=== PATIENT | female | born 1960 | race Caucasian/White ===

== ENCOUNTER 2017-06-06 22:51 | Emergency (ER) | payer MEDICARE, OTHER ==
[~2017-06-06] VITALS: Ht 157.5 cm; Wt 61.4 kg
[~2017-06-06 22:51] MED LIST: QUET400T PO
[2017-06-07 03:31] VITALS: BP 130/78
== END 2017-06-07 03:35 | disposition home or self-care (01) ==
LOC: EMS 22:53
DX: L03.031 Cellulitis of right toe (principal); K21.9 Gastro-esophageal reflux disease without esophagitis; I10 Essential (primary) hypertension
CPT/HCPCS: 99283

== ENCOUNTER 2018-07-31 05:50 | Emergency (ER) | payer OTHER ==
[~2018-07-31] VITALS: Ht 157.5 cm; Wt 59.1 kg
[2018-07-31 07:17] LABS: AMPHET/METH SCREEN,URINE POSITIVE (NEGATIVE); BARBITURATE SCREEN, URINE NEGATIVE (NEGATIVE); BENZODIAZEPINES SCREEN,URINE NEGATIVE (NEGATIVE); CANNABINOID SCREEN,URINE POSITIVE (NEGATIVE); COCAINE SCREEN,URINE NEGATIVE (NEGATIVE); METHADONE SCREEN, URINE NEGATIVE (NEGATIVE); OPIATE SCREEN,URINE NEGATIVE (NEGATIVE)
[2018-07-31 07:21] LABS: PHENCYCLIDINE SCREEN,URINE NEGATIVE (NEGATIVE)
[2018-07-31 07:46] LABS: BASOPHILS % (AUTO) 0.1 % (0.0-2.0); EOSINOPHILS % (AUTO) 0.4 % (1.0-6.0); HEMATOCRIT 42.1 % (36-46); HEMOGLOBIN 13.8 g/dL (12.0-16.0); LYMPHOCYTES # (AUTO) 0.8 K/uL (1.0-4.8); LYMPHOCYTES % (AUTO) 9.6 % (22.0-44.0); MEAN CORPUSCULAR HEMOGLOBIN 29.1 pg (26.0-34.0); MEAN CORPUSCULAR HGB CONC 32.8 G/dL (31.0-37.0); MEAN CORPUSCULAR VOLUME 89 fL (80-100); MONOCYTES # (AUTO) 0.2 K/uL (0.1-1.0); MONOCYTES % (AUTO) 2.7 % (2.0-9.0); NEUTROPHILS # (AUTO) 7.1 K/uL (1.8-7.7); PLATELET COUNT (AUTO) 246 K/uL (150-450); RED BLOOD CELL COUNT(AUTO) 4.75 MIL/uL (4.00-5.20); RED CELL DISTRIBUTION WIDTH 13.4 % (11.5-14.5)
[2018-07-31 07:48] LABS: NEUTROPHILS % (AUTO) 87.2 % (40.0-70.0)
[2018-07-31 07:53] LABS: GLUCOSE, URINE (UA) NEGATIVE (NEGATIVE); KETONES,URINE TRACE mg/dL (NEGATIVE); LEUKOCYTE ESTERASE ,URINE TRACE (NEGATIVE); NITRATE,URINE NEGATIVE (NEGATIVE); OCCULT BLOOD,URINE NEGATIVE (NEGATIVE); PROTEIN,URINE POS 1+ (NEGATIVE)
[2018-07-31 07:56] LABS: ANION GAP 11 mmol/L (8-16); CALCIUM, TOTAL 9.3 mg/dL (8.8-10.5); CARBON DIOXIDE 28 mmol/L (22-29); CHLORIDE 102 mmol/L (98-107); CREATININE 0.72 mg/dL (0.60-1.30); GLOMERULAR FILTR. RATE CALC > 60 mL/min (>60); GLUCOSE,RANDOM 137 mg/dL (70-110); POTASSIUM 3.8 mmol/L (3.5-5.1); SODIUM SERUM 141 mmol/L (136-145); UREA NITROGEN, BLOOD 33 mg/dL (7-18)
[2018-07-31 08:01] LABS: ALANINE AMINOTRANSFERASE 35 U/L (12-78); ALBUMIN 3.4 g/dL (3.4-5.0); ALKALINE PHOSPHATASE 97 U/L (46-116); ASPARTATE AMINOTRANSFERASE 37 U/L (15-37); BILIRUBIN,TOTAL 0.5 mg/dL (0.1-1.0); LIPASE 59 U/L (73-393); TOTAL PROTEIN, SERUM 7.5 g/dL (6.4-8.2)
[2018-07-31 08:03] LABS: APPEARANCE,URINE HAZY (CLEAR); BILIRUBIN,URINE PRELIM. POSITIVE (NEGATIVE)
[2018-07-31 08:13] LABS: BACTERIA,URINE Few /HPF (None Seen); CALCIUM OXALATE CRYSTALS,UR Few /LPF (None Seen); HYALINE CASTS, URINE 0-2 /LPF (None Seen); RBC,URINE 0-2 /HPF (0-2); SQUAMOUS EPITHELIAL CELL,UR Moderate /LPF (None Seen)
[2018-07-31] MEDS ORDERED: PB/HYOSCY/ATR/SCOP/LIDO/MAALOX 55 ML BOTTLE PO ONE (09:00)
[2018-07-31] MEDS ORDERED: ONDANSETRON HCL 4 MG/2 ML VIAL IM ONE (09:00)
[2018-07-31 09:30] VITALS: BP 134/73
== END 2018-07-31 09:30 | disposition home or self-care (01) ==
LOC: EMS 05:50
DX: R10.13 Epigastric pain (principal); R11.2 Nausea with vomiting, unspecified; R19.7 Diarrhea, unspecified; G47.00 Insomnia, unspecified; I10 Essential (primary) hypertension; K21.9 Gastro-esophageal reflux disease without esophagitis; F31.9 Bipolar disorder, unspecified; F15.10 Other stimulant abuse, uncomplicated; F12.10 Cannabis abuse, uncomplicated; F41.9 Anxiety disorder, unspecified; Z79.899 Other long term (current) drug therapy
CPT/HCPCS: 36415; 80053; 80307; 81001; 83690; 85025; 96372; 99283; J2405

== ENCOUNTER 2018-10-19 18:08 | Emergency (ER) | payer OTHER ==
[~2018-10-19] VITALS: Ht 157.5 cm; Wt 63.6 kg
[2018-10-19 18:13] VITALS: BP 160/92
[2018-10-19] MEDS ORDERED: ARIP2 PO (18:16)
== END 2018-10-19 19:00 | disposition left against medical advice (07) ==
LOC: EMS 18:08
DX: M54.2 Cervicalgia (principal); Z53.21 Procedure and treatment not carried out due to patient leaving prior to being seen by health care provider

== ENCOUNTER 2019-04-15 01:32 | Emergency (ER) | payer OTHER ==
[~2019-04-15] VITALS: Ht 157.5 cm; Wt 81.8 kg
[~2019-04-15 01:32] MED LIST changes: +ARIP2 PO
[2019-04-15] MEDS ORDERED: NIFE10 PO (01:59)
[2019-04-15 03:20] LABS: BASOPHILS % (AUTO) 0.5 % (0.0-2.0); EOSINOPHILS % (AUTO) 0 % (1.0-6.0); HEMATOCRIT 41.5 % (36-46); HEMOGLOBIN 13.7 g/dL (12.0-16.0); LYMPHOCYTES # (AUTO) 0.9 K/uL (1.0-4.8); LYMPHOCYTES % (AUTO) 8.8 % (22.0-44.0); MEAN CORPUSCULAR HEMOGLOBIN 28.8 pg (26.0-34.0); MEAN CORPUSCULAR VOLUME 87 fL (80-100); MONOCYTES # (AUTO) 0.3 K/uL (0.1-1.0); MONOCYTES % (AUTO) 2.8 % (2.0-9.0); PLATELET COUNT (AUTO) 276 K/uL (150-450); RED BLOOD CELL COUNT(AUTO) 4.76 MIL/uL (4.00-5.20); RED CELL DISTRIBUTION WIDTH 14.4 % (11.5-14.5)
[2019-04-15 03:21] LABS: NEUTROPHILS % (AUTO) 87.9 % (40.0-70.0)
[2019-04-15 03:22] LABS: CALCIUM, TOTAL 9.6 mg/dL (8.8-10.5); CREATININE 1.02 mg/dL (0.60-1.30); POTASSIUM 3.3 mmol/L (3.5-5.1)
[2019-04-15 03:33] LABS: ALBUMIN 3.8 g/dL (3.4-5.0); BILIRUBIN,TOTAL 0.5 mg/dL (0.1-1.0); TOTAL PROTEIN, SERUM 8.6 g/dL (6.4-8.2)
[2019-04-15] MEDS ORDERED: HALOPERIDOL 5 MG TABLET PO ONE (04:15)
[2019-04-15] MEDS ORDERED: LORazepam 1 MG TABLET PO ONE (04:15)
[2019-04-15] MEDS ORDERED: DiphenhydrAMINE HCL 50 MG/ML VIAL IM ONE (04:30)
[2019-04-15] MEDS ORDERED: HALOPERIDOL LACTATE 5 MG/ML VIAL IM ONE (04:30)
[2019-04-15] MEDS ORDERED: LORazepam 2 MG/ML VIAL IM ONE (04:30)
[2019-04-15] MEDS ORDERED: SODIUM CHLORIDE 0.9% 1,000 ML IV ONE (09:00)
[2019-04-15] MEDS ORDERED: ACETAMINOPHEN 325 MG TABLET PO PRN (13:00)
[2019-04-15] MEDS ORDERED: 0.9% SODIUM CHLORIDE 10 ML SYRINGE IVP PRN (13:00)
[2019-04-15 15:35] LABS: APPEARANCE,URINE CLEAR (CLEAR); BILIRUBIN,URINE NEGATIVE (NEGATIVE); GLUCOSE, URINE (UA) NEGATIVE (NEGATIVE); KETONES,URINE NEGATIVE (NEGATIVE); LEUKOCYTE ESTERASE ,URINE NEGATIVE (NEGATIVE); NITRATE,URINE NEGATIVE (NEGATIVE); OCCULT BLOOD,URINE NEGATIVE (NEGATIVE); PROTEIN,URINE NEGATIVE (NEGATIVE)
[2019-04-15 15:39] LABS: AMPHET/METH SCREEN,URINE POSITIVE (NEGATIVE); BARBITURATE SCREEN, URINE NEGATIVE (NEGATIVE); BENZODIAZEPINES SCREEN,URINE NEGATIVE (NEGATIVE); CANNABINOID SCREEN,URINE NEGATIVE (NEGATIVE); COCAINE SCREEN,URINE NEGATIVE (NEGATIVE); METHADONE SCREEN, URINE NEGATIVE (NEGATIVE); OPIATE SCREEN,URINE NEGATIVE (NEGATIVE)
[2019-04-15 15:40] LABS: PHENCYCLIDINE SCREEN,URINE NEGATIVE (NEGATIVE)
[2019-04-15 15:53] LABS: BACTERIA,URINE None Seen /HPF (None Seen); RBC,URINE None Seen /HPF (0-2); SQUAMOUS EPITHELIAL CELL,UR Few /LPF (None Seen); WBC,URINE 0-2 /HPF (0-5)
[2019-04-15 15:55] LABS: CALCIUM OXALATE CRYSTALS,UR Few /LPF (None Seen); MUCUS,URINE Few LPF (None Seen)
[2019-04-15 18:51] VITALS: BP 152/96
== END 2019-04-15 19:14 | disposition short-term general hospital (02) ==
LOC: EMS 01:32
DX: F29 Unspecified psychosis not due to a substance or known physiological condition (principal); R41.82 Altered mental status, unspecified; F15.10 Other stimulant abuse, uncomplicated; F41.9 Anxiety disorder, unspecified; I10 Essential (primary) hypertension; G47.00 Insomnia, unspecified; K21.9 Gastro-esophageal reflux disease without esophagitis; F31.9 Bipolar disorder, unspecified; F12.90 Cannabis use, unspecified, uncomplicated; Z98.890 Other specified postprocedural states; Z79.899 Other long term (current) drug therapy
CPT/HCPCS: 36415; 71045; 80053; 80307; 81001; 83880; 84484; 85025; 93005; 96360; 96361; 96372; 99291; J1200; J1630; J2060; 51701

== ENCOUNTER 2019-06-09 07:51 | Emergency (ER) | payer MEDICARE, OTHER ==
[~2019-06-09] VITALS: Ht 160 cm; Wt 100.0 kg
[~2019-06-09 07:51] MED LIST changes: -ARIP2 PO; +NIFE10 PO
[2019-06-09] MEDS ORDERED: ALBUTEROL SULFATE 2.5 MG/0.5 ML NEB SOLUTION NEB ONE (08:30)
[2019-06-09] MEDS ORDERED: IPRATROPIUM BROMIDE 0.5 MG/2.5 ML NEB SOLUTION NEB ONE (08:30)
[2019-06-09] MEDS ORDERED: FURO20 PO (08:32)
[2019-06-09] MEDS ORDERED: FELO5TAB PO (08:32)
[2019-06-09] MEDS ORDERED: OLAN10TA3 PO (08:32)
[2019-06-09] MEDS ORDERED: OLAN5TAB2 PO (08:32)
[2019-06-09] MEDS ORDERED: DIPH25 PO (08:32)
[2019-06-09] MEDS ORDERED: XALA2.5OS OU (08:32)
[2019-06-09] MEDS ORDERED: FUROSEMIDE 40 MG/4 ML VIAL IVP ONE (09:00)
[2019-06-09 09:29] LABS: BASOPHILS % (AUTO) 0.9 % (0.0-2.0); EOSINOPHILS % (AUTO) 2.3 % (1.0-6.0); HEMATOCRIT 37.4 % (36-46); HEMOGLOBIN 12.3 g/dL (12.0-16.0); LYMPHOCYTES # (AUTO) 1.1 K/uL (1.0-4.8); LYMPHOCYTES % (AUTO) 18.3 % (22.0-44.0); MEAN CORPUSCULAR HGB CONC 32.7 G/dL (31.0-37.0); MEAN CORPUSCULAR VOLUME 89 fL (80-100); MONOCYTES # (AUTO) 0.5 K/uL (0.1-1.0); MONOCYTES % (AUTO) 8.1 % (2.0-9.0); NEUTROPHILS # (AUTO) 4.2 K/uL (1.8-7.7); NEUTROPHILS % (AUTO) 70.4 % (40.0-70.0); PLATELET COUNT (AUTO) 203 K/uL (150-450); RED BLOOD CELL COUNT(AUTO) 4.23 MIL/uL (4.00-5.20); RED CELL DISTRIBUTION WIDTH 14.2 % (11.5-14.5)
[2019-06-09 09:30] LABS: APPEARANCE,URINE CLEAR (CLEAR); BILIRUBIN,URINE NEGATIVE (NEGATIVE); GLUCOSE, URINE (UA) NEGATIVE (NEGATIVE); KETONES,URINE NEGATIVE (NEGATIVE); LEUKOCYTE ESTERASE ,URINE NEGATIVE (NEGATIVE); NITRATE,URINE NEGATIVE (NEGATIVE); OCCULT BLOOD,URINE NEGATIVE (NEGATIVE); PROTEIN,URINE NEGATIVE (NEGATIVE)
[2019-06-09] MEDS ORDERED: FUROSEMIDE 20 MG TABLET PO ONE (09:30)
[2019-06-09 09:41] LABS: ANION GAP 3 mmol/L (8-16); CARBON DIOXIDE 35 mmol/L (22-29); CHLORIDE 102 mmol/L (98-107); CREATININE 0.65 mg/dL (0.60-1.30); GLOMERULAR FILTR. RATE CALC > 60 mL/min (>60); GLUCOSE,RANDOM 102 mg/dL (70-110); SODIUM SERUM 140 mmol/L (136-145); UREA NITROGEN, BLOOD 16 mg/dL (7-18)
[2019-06-09 09:48] LABS: ALANINE AMINOTRANSFERASE 38 U/L (12-78); ALBUMIN 3.3 g/dL (3.4-5.0); ALKALINE PHOSPHATASE 119 U/L (46-116); ASPARTATE AMINOTRANSFERASE 25 U/L (15-37); BILIRUBIN,TOTAL 0.3 mg/dL (0.1-1.0); CREATINE KINASE, TOTAL ONLY 57 U/L (26-192); TOTAL PROTEIN, SERUM 7.4 g/dL (6.4-8.2)
[2019-06-09 09:57] LABS: B-TYPE NATRIURETIC PEPTIDE 41 pg/mL (0-100)
[2019-06-09 11:31] VITALS: BP 143/76
== END 2019-06-09 12:23 | disposition home or self-care (01) ==
LOC: EMS 07:52
DX: F41.9 Anxiety disorder, unspecified (principal); I10 Essential (primary) hypertension; R06.00 Dyspnea, unspecified; G47.00 Insomnia, unspecified; K21.9 Gastro-esophageal reflux disease without esophagitis; F31.9 Bipolar disorder, unspecified; F19.10 Other psychoactive substance abuse, uncomplicated; F15.10 Other stimulant abuse, uncomplicated; F12.90 Cannabis use, unspecified, uncomplicated; Z79.899 Other long term (current) drug therapy; Z88.8 Allergy status to other drugs, medicaments and biological substances
CPT/HCPCS: 93005; 94060; 94640